=== PATIENT | female | born 1960 | race Caucasian/White ===

== ENCOUNTER 2021-10-02 08:30 | Day surgery (SDC) | payer BC, SELFPAY ==
[2021-10-02] VITALS (7 sets, daily range): BP systolic 130–162; BP diastolic 72–99; PULSE 76–85; RESP 16–18; TEMP 36.6–36.9; O2SAT 97–100; BMI 39.4
--- NOTE | 2021-10-02 10:10 | EMB_PTH ---
PATIENT: ZAC WISDOM [place] [facility] [place][id number] AGE/SX: 61/F ROOM: RE10/02/[address]: Dr. Deyanira Quan DO : 1960 BED: DIS: 10/02/2021 SPEC #: [id number] RECD: 10/02/21 11:31 STATUS: WESLEY RG #: [id number] BRIELLE: 10/02/21 10:[address]: Deyanira Quan DEPT: SURGICAL PATHOLOGY RECD BY: Ivett Noel ENTERED: 10/02/21 13:42 SP TYPE: ENDOM BX/C SANJAY DR: Dr. Esthela Ojeda MD Tissues: Endometrium, NOS Procedures: Surgery Specimen Level IV HEADER OPERATION: Hysteroscopy, D & C Symphion, polypectomy PRE-OP DIAGNOSIS: Abnormal uterine bleeding, endocervical polyp TISSUE SUBMITTED: Endometrial curettings MICROSCOPIC DIAGNOSIS Endometrial curettings: Fragments of inactive endometrial tissue with focal cystic changes. Fragments of benign ecto- and endocervical mucosa with squamous metaplasia. See comment. JOHN:ac 10/05/2021 COMMENT Clinical correlation and appropriate follow up are necessary. MICROSCOPIC DESCRIPTION Slides are reviewed. GROSS DESCRIPTION Received in fixative is one container labeled with the patient's name and designated endometrial curettings. The specimen consists of multiple irregular fragments of red-vincent soft tissue that in aggregate measure 1.5 x 0.5 x 0.1 cm. The specimen is totally submitted in one cassette. / AM:ac 10/02/2021 TC:5 CPT: 52263
[2021-10-02] MEDS: Lidocaine 1% (20 ml mdv) 20 ML Vial (10:29)
[2021-10-02 10:34] LABS: Hematocrit 43.2 % (37-47); Hemoglobin 14.2 g/dL (12.0-15.0); Mean Corp Hgb Conc 32.9 g/dL (32-36); Mean Corpuscular Hgb 28.7 pg (27.0-32.0); Mean Corpuscular Volume 87.4 fL (81-99); Mean Platelet Vol. 9.6 fl (6.2-12.0); Platelet Count 339 K/mm3 (150-450); RBC Distribution Width CV 12.6 % (11.6-14.6); RBC Distribution Width SD 39.8 fl (35.1-43.9); Red Blood Count 4.94 M/mm3 (4.2-5.4); White Blood Count 10.4 K/mm3 (4.4-11.0)
[2021-10-02] MEDS: Lactated Ringers 1,000 ML 15 ML IV (10:40)
--- NOTE | 2021-10-02 10:42 | SUR.PREOP ---
IV attempt successful on 6th try with use of ultrasound. pt reports she has long history of difficult to obtain lab draws. [employer] student able to get IV access.
--- NOTE | 2021-10-02 11:18 | PCM.DC ---
Discharge Instructions Diet Discharge Diet: No restrictions Activity Discharge Activity: May Not Drive (until 24 hours after surgery) May resume sexual activity in: 1 week (no tampons, intercourse, hot tubs, tub baths, pools for 1 week) Weight Bearing Status: Weight bearing as tolerated Lifting Restrictions: no restrictions Dressing / Incision Call your doctor if you observe: Fever of 101 or Higher, Coldness, Increased Pain, Numbness or Tingling, Change in Color, Inability to urinate, Inability to have a bowel movement, Using more than 1 pad per hour, Shortness of breath, Dizziness, Fainting spells, Swelling in the ankles, Chest pain, Increased palpitations (irregular heartbeat), Calf discomfort and Uncontrolled pain Follow Up Care Please Follow Up With: Deyanira Quan DO When: 1 week Test Results: Test results from this visit will be discussed in further detail at your follow-up appointment, if applicable. Discharge Plan Admission Primary Reason for Your Visit: surgery Attending Provider: Deyanira Quan Primary Care Provider: Esthela Ojeda Instructions Patient Instructions: Hysteroscopy Discharge Orders/Prescriptions Prescriptions: Continued potassium chloride [Klor-Con M20] 20 mEq Tablet,Er Particles/Crystals 20 meq PO DAILY RF: 0 misoprostol 200 mcg Tablet 400 mcg vaginal QHS RF: 0 docusate sodium [Dulcolax Stool Softener (dss)] 100 mg Capsule 200 mg PO DAILY RF: 0 magnesium 250 mg Tablet 400 mg PO DAILY RF: 0 hydrochlorothiazide 25 mg Tablet 25 mg PO DAILY RF: 0 Blood Sugar Support 1 cap PO/SL DAILY RF: 0 Referrals / Follow Up: Esthela Ojeda MD [Primary Care Provider] - Disposition Disposition (needs filled in before D/C Order can be placed): Home, Self Care
--- NOTE | 2021-10-02 11:20 | OP.PCM_ITS ---
Problems Associated Problem List Diagnoses (1) DUB (dysfunctional uterine bleeding): (2) Uterine polyp: Report of Operation Date of Procedure: 10/02/21 Pre-Operative Diagnosis: DUB, uterine polyp Post-Operative Diagnosis: As above Surgery/Procedure Performed:: Hysteroscopy, polypectomy, D&C Description of Surgical Findings:: 1 small endocervical polyp noted that was vascular and just inside the external cervical os. Elongated but narrow uterine cavity with a few small adhesions noted at fundus. Endometrium thin appearing. Minimal to no descent of uterus and cervix. Stenotic cervix Surgeon: Deyanira Quan Type of Anesthesia: MAC Special Medications: None Specimen's removed: Endometrial curetting and endocervical polyp Drains: None Estimated Blood Loss (mL): < 50 cc Fluids Replaced: 400 fluid deficit Description of Procedure: The patient was taken to the OR where MAC anesthesia was found to be adequate. She was prepped and draped in the usual sterile fash ion using yellow fin stirrups. A weighted speculum was placed in the vagina to expose the cervix. The anterior lip of the cervix was grasped with a single- tooth tenaculum. Visualization of the cervix was initially difficult due to vaginal length and body habitus. Once the cervix was visualized it was noted to be stenotic. 10 cc of 1% lidocaine was injected. The cervix was serially dilated to accommodate the Symphion hysteroscope. The Symphion hysteroscope was advanced to the fundus of the uterus and distended with normal saline. The uterine cavity was noted to be elongated and narrow. There were several small adhesions noted at the fundus of the uterus. Bilateral tubal ostia were visualized. The endometrium was thin appearing. No polyps or fibroids were noted in the uterine cavity. The Symphion hysteroscope was then used to inspect the entire endocervical canal. 1 small vascular polyp was noted just inside the external cervical os. The Symphion device was used to resect the entire polyp. The hysteroscope was then removed. A sharp curettage was performed. The endometrial curettings and endocervical polyp were sent to pathology for review. Bleeding was hemostatic. All instruments were removed from the vagina. A vaginal sweep was performed. The patient was taken to the recovery room in stable condition. Grafts/Implants Used: None Procedure Start Time: 10:52 Procedure Stop Time: 11:13 Complications None Admit VTE Documentation VTE Present on Admission: No VTE Mechan Device Prophylaxis: SCD's
== END 2021-10-02 12:15 | disposition home or self-care (01) ==
LOC: SDC 08:36 → AC 08:36
PROVIDERS: PCP Family Medicine; Referring Provider Obstetrics & Gynecology; Visit Provider Obstetrics & Gynecology
PROC: 0UB98ZZ Excision of Uterus, Via Natural or Artificial Opening Endoscopic (ICD-10-PCS; CPT 58558; principal; 2021-10-02 09:55)
DX: N84.1 Polyp of cervix uteri (principal); N88.2 Stricture and stenosis of cervix uteri; N87.9 Dysplasia of cervix uteri, unspecified
CPT/HCPCS: 58558; 00952; 85027; 86850; 86900; 86901; 87426; 88305; J7120